=== PATIENT | female | born 1980 | race Caucasian/White ===

== ENCOUNTER 2021-03-01 14:38 | Emergency (ER) | payer MEDICAID ==
[2021-03-01 15:18] VITALS: BP 104/80; PULSE 82
--- NOTE | 2021-03-01 16:04 | EDM.PDOC ---
ED HPI GENERAL MEDICAL PROBLEM - General Chief Complaint: Back Pain or Injury Stated Complaint: BACK PAIN Time Seen by Provider: 03/01/21 15:20 Source of Information: Reports: Patient, RN Notes Reviewed History Limitations: Reports: No Limitations - History of Present Illness INITIAL COMMENTS - FREE TEXT/NARRATIVE: Patient is a 40-year-old female who presents to the ER for the evaluation of her back pain. Patient states she has a history of spinal stenosis, and has subsequently run out of her gabapentin prescription. She has been out for about 2 weeks. She developed pain in her mid back this morning, and states that she was not sure if this is because of her spinal stenosis, or if she was having a kidney infection as she has had this in the past she is denying any dysuria, frequency or urgency. Patient did feel a little feverish this morning but has had no fever at time of triage. Patient notes that she has not been able to get in with her primary care provider until April 17. Patient denies any other sick-like symptoms, fever/chills, cough/shortness of breath, nausea/vomiting/diarrhea. She is denying any numbness or tingling distal to the pain, and she has no saddle anesthesia. Middle Back Pain Score (Numeric/FACES): 8 - Related Data Allergies Allergy/AdvReac Type Severity Reaction Status Date / Time erythromycin base Allergy Intermediate Hives Verified 04/17/16 19:53 codeine Allergy Cannot Verified 03/01/21 15:19 Remember shellfish derived Allergy Airway Verified 04/17/16 19:53 Tightness Sulfa (Sulfonamide Allergy Rash Verified 04/17/16 19:53 Antibiotics) Home Meds: Home Meds Levothyroxine [Synthroid] 25 mcg PO DAILY 10/11/14 [History] Amitriptyline [Elavil] 25 mg PO BEDTIME 03/01/21 [History] ClonazePAM [KlonoPIN] 0.5 mg PO DAILY 03/01/21 [History] Gabapentin [Neurontin] 100 mg PO TID 03/01/21 [History] Gabapentin [Neurontin] 100 mg PO TID #90 cap 03/01/21 [Rx] Past Medical History Gastrointestinal History: Reports: GERD Genitourinary History: Reports: Renal Cal[employer] History: Reports: Neurological History: Reports: Other (See Below) Other Neuro History: spinal stenosis Psychiatric History: Reports: Anxiety Endocrine/Metabolic History: Reports: Hypothyroidism Hematologic History: Reports: Anemia - Past Surgical History HEENT Surgical History: Reports: Tonsillectomy GI Surgical History: Reports: Appendectomy Female Surgical History: Reports: Section Social & Family History - Family History Family Medical History: No Pertinent Family History - Tobacco Use Tobacco Use Status *Q: Current Every Day Tobacco User Years of Tobacco use: 30 Packs/Tins Daily: 1 - Caffeine Use Caffeine Use: Reports: Coffee - Recreational Drug Use Recreational Drug Use: No - Living Situation & Occupation Living situation: Reports: , with Significant Other Occupation: Unemployed ED ROS GENERAL - Review of Systems Review Of Systems: Comprehensive ROS is negative, except as noted in HPI. ED EXAM,LOWER BACK PAIN/INJURY - Physical Exam Exam: See Below Exam Limited By: No Limitations General Appearance: Alert, WD/WN, No Apparent Distress Respiratory/Chest: No Respiratory Distress, Lungs Clear, Normal Breath Sounds, No Accessory Muscle Use, Chest Non-Tender Cardiovascular: Normal Peripheral Pulses, Regular Rate, Rhythm, No Edema GI/Abdominal: Normal Bowel Sounds, Soft, Non-Tender, No Distention, No Mass Back Exam: Muscle Spasm (bilateral tension noted.). No: CVA Tenderness (L), CVA Tenderness (R) Extremities: Normal Inspection, Normal Range of Motion, Normal Capillary Refill Neurological: Alert, Normal Mood/Affect, Normal Dorsiflexion, Normal Plantar Flexion, No Motor/Sensory Deficits. No: Straight Leg Raise (L), Straight Leg Raise (R), Saddle Anesthesia Psychiatric: Normal Affect, Normal Mood Skin Exam: Warm, Dry, Intact, Normal Color, No Rash Course - Vital Signs Last Recorded V/S: Last Vital Signs Temp 98.2 F 03/01/21 15:16 Pulse 82 03/01/21 15:16 Resp 16 03/01/21 15:16 BP 104/80 03/01/21 15:16 Pulse Ox 98 03/01/21 15:16 - Orders/Labs/Meds Labs: Laboratory Tests 03/01/21 Range/Units 15:45 Urine Color Yellow (Yellow) Urine Appearance Clear (Clear) Urine pH 6.0 (5.0-8.0) Ur Specific [place] > or = 1.030 (1.005-1.030) Urine Protein Negative (Negative) Urine Glucose (UA) Negative (Negative) Urine Ketones Negative (Negative) Urine Occult Blood Negative (Negative) Urine Nitrite Negative (Negative) Urine Bilirubin Negative (Negative) Urine Urobilinogen 0.2 (0.2-1.0) Ur Leukocyte Esterase Trace H (Negative) Urine RBC 0-5 (0-5) /hpf Urine WBC 0-5 (0-5) /hpf Ur Squamous Epith Cells 5-10 H (0-5) /hpf Urine Bacteria Few (FEW) /hpf Urine Mucus Moderate H (FEW) /hpf - Re-Assessments/Exams Free Text/Narrative Re-Assessment/Exam: 03/01/21 16:03 Patient presents to the ER for evaluation of her back pain, we will go ahead get a urinalysis for initial management. 03/01/21 16:23 Urinalysis has a trace leukocyte Estrace with 5-10 squamous epithelial cells, suggestive of contamination. For today's purposes we will refill her gabapentin prescription and have her follow-up with her regular care provider at her next appointment, or return to the ER if not much better or worsening symptoms develop. Departure - Departure Time of Disposition: 16:24 Disposition: Home, Self-Care 01 Condition: Good Clinical Impression: Back pain Qualifiers: Back pain location: low back pain Chronicity: chronic Back pain laterality: bilateral Sciatica presence: without sciatica Qualified Code(s): M54.5 - Low back pain; G89.29 - Other chronic pain - Discharge Information *PRESCRIPTION DRUG MONITORING PROGRAM REVIEWED*: Yes *COPY OF PRESCRIPTION DRUG MONITORING REPORT IN PATIENT MARK: No Prescriptions: Gabapentin [Neurontin] 100 mg PO TID #90 cap Instructions: Chronic Back Pain, [id number] Referrals: Israel Alarcon MD [Primary Care Provider] - Forms: ED Department Discharge Additional Instructions: You were evaluated in the ER today for your back pain. Urinalysis demonstrated no sign of UTI at today's visit, it is likely that this is pain that stemming from your spinal stenosis that you have chronically. You have been given a prescription refill of your gabapentin for ongoing management. Medication has been electronically prescribed to the [facility] please go to [facility], and pick this up and take as directed. Continue all other medications as previously prescribed by your regular doctor Follow-up with your medical provider at your next scheduled appointment, or call them to see if they would get you in sooner since you came to the ER for an ER follow-up. Do not hesitate to return to the ER at any time if symptoms change or worsen. Sepsis Event Note (ED) - Evaluation Sepsis Screening Result: No Definite Risk - Focused Exam Vital Signs: Vital Signs Temp Pulse Resp BP Pulse Ox 03/01/21 15:16 98.2 F 82 16 104/80 98
== END 2021-03-01 16:45 | disposition home or self-care (01) ==
LOC: JD.ED 14:38
DX: G89.29 Other chronic pain (principal); M54.5 Low back pain; E03.9 Hypothyroidism, unspecified; Z72.0 Tobacco use; Z88.2 Allergy status to sulfonamides; Z91.013 Allergy to seafood; Z88.1 Allergy status to other antibiotic agents; Z88.5 Allergy status to narcotic agent; Z79.899 Other long term (current) drug therapy
CPT/HCPCS: 81001; 99283

== ENCOUNTER 2023-01-06 13:52 | Emergency (ER) | payer MEDICAID, OTHER ==
[2023-01-06] MEDS ORDERED: Acetaminophen/HYDROcodone 325-5 MG Tab PO ONE (14:57)
[2023-01-06] MEDS ORDERED: Acetaminophen 325 MG Tab PO ONE (15:09)
[2023-01-06 15:36] VITALS: BP 103/68; PULSE 81
== END 2023-01-06 16:08 | disposition home or self-care (01) ==
LOC: JD.ED 13:52
DX: S93.324A Dislocation of tarsometatarsal joint of right foot, initial encounter (principal); E03.9 Hypothyroidism, unspecified; Z98.890 Other specified postprocedural states; Z88.1 Allergy status to other antibiotic agents; Z88.5 Allergy status to narcotic agent; Z91.013 Allergy to seafood; Z88.2 Allergy status to sulfonamides; Z79.899 Other long term (current) drug therapy; V89.2XXA Person injured in unspecified motor-vehicle accident, traffic, initial encounter; Y92.410 Unspecified street and highway as the place of occurrence of the external cause
CPT/HCPCS: 73590; 73630; 99284; A9270; 99283